=== PATIENT | male | born 1945 | race Caucasian/White ===

== ENCOUNTER 2016-06-14 20:55 | Emergency (ER) | payer MEDICARE, BC ==
[2016-06-14 21:48] VITALS: RESP 20
[2016-06-14] MEDS ORDERED: CODEINE/GUAIFENESIN 5 ML SOL PO ONE (22:07)
[2016-06-14] MEDS ORDERED: CODEINE/GUAIFENESIN 5 ML SOL ONE ×2 (22:16→22:17)
[2016-06-14] MEDS ORDERED: PREDNISONE 20 MG TAB PO ONE (22:19)
[2016-06-14] MEDS ORDERED: ALBUTEROL NEB SOL 2.5MG/3ML 1 VIAL SOL NEB ONE (22:20)
[2016-06-14] MEDS ORDERED: PREDNISONE 20 MG TAB ONE (22:21)
[2016-06-14] MEDS ORDERED: ALBUTEROL NEB SOL 2.5MG/3ML 1 VIAL SOL ONE (22:25)
[2016-06-14 22:38] VITALS: PULSE 65; O2SAT 95
[2016-06-14] MEDS ORDERED: AZITHROMYCIN 250 MG TAB PO ONE (22:52)
[2016-06-14] MEDS ORDERED: AZITHROMYCIN 250 MG TAB ONE (22:54)
[2016-06-14 23:20] VITALS: BP 165/89; TEMP 99.2
== END 2016-06-14 23:13 | disposition home or self-care (01) | DRG 202 ==
LOC: ED 20:55
DX: J20.9 Acute bronchitis, unspecified (principal); J67.9 Hypersensitivity pneumonitis due to unspecified organic dust
CPT/HCPCS: 87430; 87804; 99283; 99284; J7603

== ENCOUNTER 2016-09-29 13:12 | Emergency (ER) | payer MEDICARE, BC ==
[2016-09-29] MEDS ORDERED: NITROGLYCERIN 0.4 MG TAB SL PRN (13:14)
[2016-09-29] MEDS ORDERED: SODIUM CHLORIDE 0.9% FLUSH 10 ML SOL IV PRN (13:14)
[2016-09-29] MEDS ORDERED: METOPROLOL TARTRATE 5 MG/5 ML SOL IV ONE ×2 (13:21→13:22)
[2016-09-29 13:25] LABS: BASOPHILS % (AUTO) 1 % (0-3); EOSINOPHILS % (AUTO) 1 % (0-9); HEMATOCRIT 40 % (39-53); MEAN CORPUSCULAR HGB CONC 34.8 gm/dl (32.0-36.0); MEAN CORPUSCULAR VOLUME 84 fL (80-100); MONOCYTES % (AUTO) 9.4 % (0-12); NEUTROPHILS % (AUTO) 76.7 % (37-80)
[2016-09-29 13:48] LABS: ALBUMIN 3.6 gm/dl (3.4-5.0); CALCIUM 9.3 mg/dl (8.5-10.1); POTASSIUM 4.5 mMol/L (3.5-5.1)
[2016-09-29] MEDS ORDERED: KETOROLAC TROMETHAMINE 30 MG/ML SOL IV ONE (14:28)
[2016-09-29 14:33] LABS: MAGNESIUM 1.3 mg/dl (1.8-2.4)
[2016-09-29] MEDS ORDERED: KETOROLAC TROMETHAMINE 30 MG/ML SOL ONE (14:40)
[2016-09-29] MEDS ORDERED: MAGNESIUM SULFATE 1 GM/2 ML SOL IV ONE (14:42)
[2016-09-29] MEDS ORDERED: LIDOCAINE HCL 2% (VISCOUS) 20 ML SOL ONE (15:05)
[2016-09-29] MEDS ORDERED: ALUMINUM/MAGNESIUM 30 ML SUS ONE (15:05)
[2016-09-29] MEDS ORDERED: ALUMINUM/MAGNESIUM 30 ML SUS PO ONE (15:06)
[2016-09-29] MEDS ORDERED: LIDOCAINE HCL 2% (VISCOUS) 20 ML SOL MT ONE (15:06)
[2016-09-29] MEDS ORDERED: MAGNESIUM SULFATE 5 GM/10 ML SOL ONE (15:15)
[2016-09-29 15:28] VITALS: TEMP 99.3
[2016-09-29] MEDS ORDERED: SODIUM CHLORIDE 0.9% 1000ML 1,000 ML IV ONE (17:41)
[2016-09-29 18:49] VITALS: BP 161/88; PULSE 82; RESP 27; O2SAT 94
== END 2016-09-29 18:53 | disposition short-term general hospital (02) | DRG 313 ==
LOC: ED 13:12
DX: R07.9 Chest pain, unspecified (principal)
CPT/HCPCS: 36415; 71010; 71275; 80053; 82550; 83735; 84100; 84484; 85025; 85610; 85730; 93005; 99285; J1885; J3475